=== PATIENT | female | born 1970 | race Caucasian/White ===

== ENCOUNTER 2020-04-06 13:18 | Outpatient (REF) | payer OTHER, SELFPAY ==
[2020-04-06 15:56] LABS: Alanine Aminotransferase 23 U/L (0-31); Albumin Level 4.1 g/dL (3.5-5.0); Alkaline Phosphatase 99 U/L (39-117); Aspartate Amino Transferase 16 U/L (5-31); Bilirubin Direct < 0.2 mg/dL (0.0-0.5); Bilirubin Total 0.4 mg/dL (0.0-1.0); Total Protein 7.1 g/dL (6.5-8.0)
[2020-04-06 16:00] LABS: Cholesterol 294 mg/dL; HDL Cholesterol 39 mg/dL; Triglycerides 429 mg/dL
== END 2020-04-06 13:19 | disposition home or self-care (01) ==
LOC: CF 13:18
PROVIDERS: PCP Internal Medicine; Referring Provider Internal Medicine; Visit Provider Internal Medicine
DX: I25.10 Atherosclerotic heart disease of native coronary artery without angina pectoris (principal); I10 Essential (primary) hypertension; Z95.5 Presence of coronary angioplasty implant and graft; E78.2 Mixed hyperlipidemia; E11.8 Type 2 diabetes mellitus with unspecified complications; Z78.9 Other specified health status
CPT/HCPCS: 80061; 80076; 99214

== ENCOUNTER → 2020-04-20 09:48 | Outpatient (BNVA) | payer OTHER, SELFPAY | PROVIDERS: PCP Internal Medicine; Referring Provider Internal Medicine; Visit Provider Internal Medicine Pulmonary Disease | DX: J45.40 Moderate persistent asthma, uncomplicated (principal); Z79.899 Other long term (current) drug therapy | CPT/HCPCS: 99214 ==

== ENCOUNTER 2020-05-13 09:00 | Day surgery (SDC) | payer OTHER, SELFPAY ==
--- NOTE | 2020-05-12 13:58 | P.CONAN_ITS ---
Documented by User: Elvia Damari 05/12/20 14:13 HPI - Anesthesia Eval Consult details Narrative: 49yo F for Colonoscopy PMFSH Past Medical History Medical History Arteriosclerotic cardiovascular disease Bipolar 1 disorder Depression Dyspnea on exertion Essential (primary) hypertension Mixed hyperlipidemia Moderate persistent asthma NSTEMI (non-ST elevated myocardial infarction) Statin intolerance Type 2 diabetes mellitus with unspecified complications Family History Family History Father Cancer of kidney Lung cancer Surgical History Surgical History H/O Spinal surgery H/O: hysterectomy History of appendectomy History of cardiac cath Previous section Stented coronary artery Social History Social History Smoking Status: Current every day smoker Packs Per Day: 0.5 Cigarettes Per Day: 10 Smoked in Last 30 Days: Yes Patient Interested in Nicotine Replacement: No Use of substances other than those prescribed or required for medical reasons: No Advance Directives: No Meds Allergies Allergy/AdvReac Type Severity Reaction Status Date / Time citalopram [From Celexa] Allergy Severe ANAPHYLAXIS Verified 04/20/20 10:09 Iodinated Contrast Media Allergy Severe ANAPHYLAXIS Verified 04/20/20 10:09 [IV Dye, Iodine Containing] morphine [Morphine] Allergy Severe THROAT Verified 04/20/20 10:09 CLOSED, anaphylaxis, anaphylaxis salmeterol Allergy Severe DIFFICULTY Verified 04/20/20 10:09 [From Serevent Diskus] BREATHING, shortness of breath, shortness of breath adhesive tape [Adhesive Tape] Allergy Intermediate RASH, Verified 04/20/20 10:09 PAPER TAPE IS OKAY TO USE codeine [Codeine] Allergy Mild ASTHMA, Verified 04/20/20 10:09 anaphylaxis hydrocortisone Allergy Mild RASH Verified 04/20/20 10:09 [Hydrocortisone] latex [Latex] Allergy Mild ITCHING Verified 04/20/20 10:09 Penicillins Allergy Mild HIVES Verified 04/20/20 10:09 trazodone [Trazodone] Allergy Mild HIVES Verified 04/20/20 10:09 adhesive bangade Allergy Unknown Unknown Verified 04/20/20 10:09 alirocumab [Praluent Pen] Allergy Unknown Severe Verified 04/20/20 10:09 muscle pain, cramping azithromycin [From ZITHROMAX] Allergy Unknown REACTION Verified 04/20/20 10:09 UNKNOWN Cefuroxime Axetil Allergy Unknown shortness Verified 04/20/20 10:09 of breath Clindamycin HCl Allergy Unknown vomiting Verified 04/20/20 10:09 contrast dye Allergy Unknown anaphylaxis Verified 04/20/20 10:09 escitalopram [Lexapro] Allergy Unknown Unknown Verified 04/20/20 10:09 ezetimibe [From ZETIA] Allergy Unknown REACTION Verified 04/20/20 10:09 UNKNOWN Hydrocortisone Allergy Unknown shortness Verified 04/20/20 10:09 of breath naproxen Allergy Unknown Unknown Verified 04/20/20 10:09 prednisone Allergy Unknown sob Verified 04/20/20 10:09 sitagliptin [From JANUVIA] Allergy Unknown UNKNOWN Verified 04/20/20 10:09 REACTION Sulfa (Sulfonamide Allergy Unknown sob Verified 04/20/20 10:09 Antibiotics) Toradol Allergy Unknown anaphylaxis Verified 04/20/20 10:09 tramadol [TRAMADOL] Allergy Unknown REACTION Verified 04/20/20 10:09 UNKNOWN, anaphylaxis, anaphylaxis trimethoprim [From BACTRIM] Allergy Unknown REACTION Verified 04/20/20 10:09 UNKNOWN quetiapine [From Seroquel] AdvReac Mild SEIZURE Verified 04/20/20 10:09 Home Medications Medication Instructions Recorded Confirmed Type amlodipine 5 mg tablet 2.5 mg PO DAILY 04/06/20 History aspirin 81 mg tablet,delayed 81 mg PO DAILY 04/06/20 04/06/20 History release carvedilol 3.125 mg tablet 3.125 mg PO BID 04/06/20 History ciclesonide 160 mcg/actuation 1 puff PO BID 04/06/20 History aerosol inhaler diazepam 2 mg tablet 2 mg PO DAILY PRN 04/06/20 History glyburide 2.5 mg tablet 2.5 mg PO QAM 04/06/20 History levetiracetam 500 mg tablet 500 mg PO TID 04/06/20 History lisinopril 2.5 mg tablet 2.5 mg PO DAILY 04/06/20 History metformin 1,000 mg tablet 1,000 mg PO BID 04/06/20 History pantoprazole 40 mg tablet,delayed 40 mg PO DAILY 04/06/20 History release topiramate 200 mg tablet 500 mg PO DAILY 04/06/20 History Exam Exam Date and Time: May 12, 2020 1358 Pertinent Lab Results Pertinent Lab Results: Laboratory Tests 06/23/19 12/30/19 11:30 14:36 WBC 12.9 H Hgb 16.1 H Hct 46.7 Plt Count 350 Sodium 140 Potassium 4.5 D Chloride 106 BUN 11 Creatinine 0.72 Narrative Narrative: EKG 04/06/20: NSR @ 85, Nonspec ST and T wave abn Echo 06/2019: Essentially nml study with trace AR Documented by User: Raimundo Shields MD 05/13/20 10:05 [facility] Past Medical History Medical History Arteriosclerotic cardiovascular disease Bipolar 1 disorder Depression Dyspnea on exertion Essential (primary) hypertension Mixed hyperlipidemia Moderate persistent asthma NSTEMI (non-ST elevated myocardial infarction) Statin intolerance Type 2 diabetes mellitus with unspecified complications Family History Family History Father Cancer of kidney Lung cancer Surgical History Surgical History H/O Spinal surgery H/O: hysterectomy History of appendectomy History of cardiac cath Previous section Stented coronary artery Social History Social History Smoking Status: Current every day smoker Packs Per Day: 0.5 Cigarettes Per Day: 10 Smoked in Last 30 Days: Yes Patient Interested in Nicotine Replacement: No Use of substances other than those prescribed or required for medical reasons: No Advance Directives: No Meds Allergies Allergy/AdvReac Type Severity Reaction Status Date / Time citalopram [From Celexa] Allergy Severe ANAPHYLAXIS Verified 04/20/20 10:09 Iodinated Contrast Media Allergy Severe ANAPHYLAXIS Verified 04/20/20 10:09 [IV Dye, Iodine Containing] morphine [Morphine] Allergy Severe THROAT Verified 04/20/20 10:09 CLOSED, anaphylaxis, anaphylaxis salmeterol Allergy Severe DIFFICULTY Verified 04/20/20 10:09 [From Serevent Diskus] BREATHING, shortness of breath, shortness of breath adhesive tape [Adhesive Tape] Allergy Intermediate RASH, Verified 04/20/20 10:09 PAPER TAPE IS OKAY TO USE codeine [Codeine] Allergy Mild ASTHMA, Verified 04/20/20 10:09 anaphylaxis hydrocortisone Allergy Mild RASH Verified 04/20/20 10:09 [Hydrocortisone] latex [Latex] Allergy Mild ITCHING Verified 04/20/20 10:09 Penicillins Allergy Mild HIVES Verified 04/20/20 10:09 trazodone [Trazodone] Allergy Mild HIVES Verified 04/20/20 10:09 adhesive bangade Allergy Unknown Unknown Verified 04/20/20 10:09 alirocumab [Praluent Pen] Allergy Unknown Severe Verified 04/20/20 10:09 muscle pain, cramping azithromycin [From ZITHROMAX] Allergy Unknown REACTION Verified 04/20/20 10:09 UNKNOWN Cefuroxime Axetil Allergy Unknown shortness Verified 04/20/20 10:09 of breath Clindamycin HCl Allergy Unknown vomiting Verified 04/20/20 10:09 contrast dye Allergy Unknown anaphylaxis Verified 04/20/20 10:09 escitalopram [Lexapro] Allergy Unknown Unknown Verified 04/20/20 10:09 ezetimibe [From ZETIA] Allergy Unknown REACTION Verified 04/20/20 10:09 UNKNOWN Hydrocortisone Allergy Unknown shortness Verified 04/20/20 10:09 of breath naproxen Allergy Unknown Unknown Verified 04/20/20 10:09 prednisone Allergy Unknown sob Verified 04/20/20 10:09 sitagliptin [From JANUVIA] Allergy Unknown UNKNOWN Verified 04/20/20 10:09 REACTION Sulfa (Sulfonamide Allergy Unknown sob Verified 04/20/20 10:09 Antibiotics) Toradol Allergy Unknown anaphylaxis Verified 04/20/20 10:09 tramadol [TRAMADOL] Allergy Unknown REACTION Verified 04/20/20 10:09 UNKNOWN, anaphylaxis, anaphylaxis trimethoprim [From BACTRIM] Allergy Unknown REACTION Verified 04/20/20 10:09 UNKNOWN quetiapine [From Seroquel] AdvReac Mild SEIZURE Verified 04/20/20 10:09 Home Medications Medication Instructions Recorded Confirmed Type amlodipine 5 mg tablet 2.5 mg PO DAILY 04/06/20 History aspirin 81 mg tablet,delayed 81 mg PO DAILY 04/06/20 04/06/20 History release carvedilol 3.125 mg tablet 3.125 mg PO BID 04/06/20 History ciclesonide 160 mcg/actuation 1 puff PO BID 04/06/20 History aerosol inhaler diazepam 2 mg tablet 2 mg PO DAILY PRN 04/06/20 History glyburide 2.5 mg tablet 2.5 mg PO QAM 04/06/20 History levetiracetam 500 mg tablet 500 mg PO TID 04/06/20 History lisinopril 2.5 mg tablet 2.5 mg PO DAILY 04/06/20 History metformin 1,000 mg tablet 1,000 mg PO BID 04/06/20 History pantoprazole 40 mg tablet,delayed 40 mg PO DAILY 04/06/20 History release topiramate 200 mg tablet 500 mg PO DAILY 04/06/20 History Exam Airway Mallampati Class: I TM Dist: >3cm Neck ROM: Full Denture: Upper and Lower Heart: rrr Assessment and Plan Assessment Anesthesia Assessment: Anesthesia Plan Discussed and Chart Reviewed Final Anesthetic Review NPO: Yes ASA Class: III Final Preanesthetic Review: No Changes in Pt Med Stat, Meds/Allgs Chart Reviewed, Consent Obtained/Reviewed and Anes Risks/Benef Reviewed Patient Risk: Intermediate Procedure Risk: Low Anesthetic Plan Anesthetic Plan: MAC: Disposition: Standard PACU
[2020-05-13 09:51] VITALS: BMI 22.6
[2020-05-13 09:56] VITALS: BP 120/86; PULSE 82; RESP 18; TEMP 36.3; O2SAT 98
[2020-05-13 10:09] LABS: Glucose, Whole Blood 188 mg/dL (60-115)
--- NOTE | 2020-05-13 10:11 | MHC.SHP ---
Pre-Procedural Eval Section B Chief Complaint: constipation Details of Present Illness: hx of polyps and poor prep Relevant Social History: Tobacco Use Present Medications: see Short Stay Collaborative assessment Medical History: Significant History (dm, CAD, HLP, HTN) History of Previous Operations: Relevant previous surgery/procedure and date(s) (appendectomy, hysterectomy, c sections) Allergies: Allergies Allergy/AdvReac Type Severity Reaction Status Date / Time citalopram [From Celexa] Allergy Severe ANAPHYLAXIS Verified 04/20/20 10:09 Iodinated Contrast Media Allergy Severe ANAPHYLAXIS Verified 04/20/20 10:09 [IV Dye, Iodine Containing] morphine [Morphine] Allergy Severe THROAT Verified 04/20/20 10:09 CLOSED, anaphylaxis, anaphylaxis salmeterol Allergy Severe DIFFICULTY Verified 04/20/20 10:09 [From Serevent Diskus] BREATHING, shortness of breath, shortness of breath adhesive tape [Adhesive Tape] Allergy Intermediate RASH, Verified 04/20/20 10:09 PAPER TAPE IS OKAY TO USE codeine [Codeine] Allergy Mild ASTHMA, Verified 04/20/20 10:09 anaphylaxis hydrocortisone Allergy Mild RASH Verified 04/20/20 10:09 [Hydrocortisone] latex [Latex] Allergy Mild ITCHING Verified 04/20/20 10:09 Penicillins Allergy Mild HIVES Verified 04/20/20 10:09 trazodone [Trazodone] Allergy Mild HIVES Verified 04/20/20 10:09 adhesive bangade Allergy Unknown Unknown Verified 04/20/20 10:09 alirocumab [Praluent Pen] Allergy Unknown Severe Verified 04/20/20 10:09 muscle pain, cramping azithromycin [From ZITHROMAX] Allergy Unknown REACTION Verified 04/20/20 10:09 UNKNOWN Cefuroxime Axetil Allergy Unknown shortness Verified 04/20/20 10:09 of breath Clindamycin HCl Allergy Unknown vomiting Verified 04/20/20 10:09 contrast dye Allergy Unknown anaphylaxis Verified 04/20/20 10:09 escitalopram [Lexapro] Allergy Unknown Unknown Verified 04/20/20 10:09 ezetimibe [From ZETIA] Allergy Unknown REACTION Verified 04/20/20 10:09 UNKNOWN Hydrocortisone Allergy Unknown shortness Verified 04/20/20 10:09 of breath naproxen Allergy Unknown Unknown Verified 04/20/20 10:09 prednisone Allergy Unknown sob Verified 04/20/20 10:09 sitagliptin [From JANUVIA] Allergy Unknown UNKNOWN Verified 04/20/20 10:09 REACTION Sulfa (Sulfonamide Allergy Unknown sob Verified 04/20/20 10:09 Antibiotics) Toradol Allergy Unknown anaphylaxis Verified 04/20/20 10:09 tramadol [TRAMADOL] Allergy Unknown REACTION Verified 04/20/20 10:09 UNKNOWN, anaphylaxis, anaphylaxis trimethoprim [From BACTRIM] Allergy Unknown REACTION Verified 04/20/20 10:09 UNKNOWN quetiapine [From Seroquel] AdvReac Mild SEIZURE Verified 04/20/20 10:09 Review of Systems Sugical H&P ROS: Negative: Constitution, Cardiovascular, Respiratory, Neurological, Psychiatric, Hem-Onc, Allergic/Immunologic, Gastrointestinal, Genitourinary, Musculoskeletal, Integumentary, Endocrine and Eyes/Ears/Nose/Throat Exam Surgical H&P Exam: Normal: HEENT, Normal: Heart, Normal: Lungs, Normal: Extremities, Normal: Abdomen, Normal: Skin and Normal: Neurological Plan Diagnosis/Plan: Unchanged Patient has been examined and remains a candidate for the planned procedure
--- NOTE | 2020-05-13 10:13 | PM.OP ---
Brief Operative Note Date of Service: 05/13/20 Pre-op diagnosis: hx of colon polyps Post-op diagnosis: same Procedure: see op note Surgeon: Allan Hernandez MD Anesthesia: MAC Estimated blood loss (mL): 0 Condition: stable Disposition: PACU
[2020-05-13] MEDS: Lactated Ringers 1,000 ML 100 ML IVCONT (10:14)
--- NOTE | 2020-05-13 10:58 | W.PM.OPN ---
Operative Note Operative Note Date of Service: 05/13/20 Narrative: Operative Information Procedure Description: Colonoscopy COLONOSCOPY Instrument: Olympus variable stiffness pediatric scope 190L Colonoscopy Monitoring: Vital signs and clinical assessment, continuous EKG monitoring, Pulse oximetry, Carbon Dioxide monitoring and blood pressure monitoring were done throughout the procedure. Colon withdrawal time was 12 minutes. Procedure: The patient was placed in the left lateral decubitis position and pre-procedure medications were administered. After a digital rectal examination of the ano-rectum, the video colonoscope was inserted into the rectum and advanced through the colon to the cecum/TI. The colonoscope was slowly withdrawn in a retrograde panoramic fashion and the colon mucosa was carefully examined including a retroflexed view of the rectum. Findings and interventions are described below. Procedure Difficulty:easy Findings: Terminal Ileum-normal Cecum:normal Ascending Colon: normal Transverse Colon -normal Descending Colon:normal Sigmoid Colon: several polyps noted, appeared hyperplastic , larger ones measuring about 10 mm biopsy excised Rectum: Retroflexion with small internal hemorrhoids, grade I, 8 mm sessile polyp removed with biopsy forceps Anorectum - normal Colon preparation: [place] Bowel Preparation Scale Right colon; 3 Transverse colon: 3 Left colon; 3 (0 = Unprepared colon segment with mucosa not seen due to solid stool that cannot be cleared. 1 = Portion of mucosa of the colon segment seen, but other areas of the colon segment not well seen due to staining, residual stool and/or opaque liquid. 2 = Minor amount of residual staining, small fragments of stool and/or opaque liquid, but mucosa of colon segment seen well. 3 = Entire mucosa of colon segment seen well with no residual staining, small fragments of stool or opaque liquid) Impression and Post Procedure Diagnosis: polyps internal hemorrhoids Plan: High fiber diet leaflet Avoid straining at stool, epsom salts and sitz bath prn, anusol supps or cream prn Repeat Colonoscopy in 3-5 years pending path or earlier if clinically indicated Above findings were reviewed with the patient and relevant handouts were provided if indicated.
[2020-05-13 11:05] VITALS: BP 108/70; PULSE 82; RESP 14; TEMP 36.4; O2SAT 98
[2020-05-13 11:20] VITALS: BP 94/62; PULSE 78; RESP 14; O2SAT 96
[2020-05-13 11:33] VITALS: BP 104/66; PULSE 82; RESP 16; TEMP 36.4; O2SAT 97
--- NOTE | 2020-05-13 11:44 | HO.POSTANES ---
Post Anesthesia Evaluation Post Anesthesia Evaluation Vital Signs: Vital Signs Temp Pulse Resp BP Pulse Ox 05/13/20 11:33 97.6 F 82 16 104/66 97 05/13/20 11:20 78 14 94/62 96 05/13/20 11:05 97.6 F 82 14 108/70 98 05/13/20 09:56 97.3 F 82 18 120/86 98 Anesthesia: Monitored Mental Status: Awake Pain Control: Satisfactory Nausea/Vomiting: None Hydration: Adequate Anesthesia-Related Issues: No Anes. Related Issues
== END 2020-05-13 11:55 | disposition home or self-care (01) ==
PROVIDERS: PCP Internal Medicine; Visit Provider Internal Medicine Gastroenterology
PROC: 0DJD8ZZ Inspection of Lower Intestinal Tract, Via Natural or Artificial Opening Endoscopic (ICD-10-PCS; CPT 45378; principal; 2020-05-13 10:10)
DX: K59.00 Constipation, unspecified (principal); Z86.010 Personal history of colon polyps; K63.5 Polyp of colon; K62.1 Rectal polyp; K64.0 First degree hemorrhoids; I10 Essential (primary) hypertension; E78.2 Mixed hyperlipidemia; E11.8 Type 2 diabetes mellitus with unspecified complications; I25.10 Atherosclerotic heart disease of native coronary artery without angina pectoris; Z95.5 Presence of coronary angioplasty implant and graft; J45.40 Moderate persistent asthma, uncomplicated; F31.9 Bipolar disorder, unspecified; Z79.82 Long term (current) use of aspirin; Z79.84 Long term (current) use of oral hypoglycemic drugs; Z79.899 Other long term (current) drug therapy; F17.210 Nicotine dependence, cigarettes, uncomplicated; Z88.0 Allergy status to penicillin; Z88.2 Allergy status to sulfonamides; Z88.8 Allergy status to other drugs, medicaments and biological substances; Z91.040 Latex allergy status
CPT/HCPCS: 45380; 82947; 88305; J2250

== ENCOUNTER → 2020-05-21 09:54 | Outpatient (BNVA) | payer OTHER, SELFPAY | PROVIDERS: PCP Internal Medicine; Referring Provider Internal Medicine; Visit Provider Internal Medicine Gastroenterology | DX: Z76.89 Persons encountering health services in other specified circumstances (principal) ==

== ENCOUNTER 2020-07-09 11:39 | Outpatient (REF) | payer OTHER, SELFPAY ==
--- NOTE | 2020-07-09 12:11 | XR_ITS ---
EXAMINATION: XR SINUSES CLINICAL INFORMATION: Chronic sinusitis COMPARISON: Previous head CT June 2019 TECHNIQUE: 5 views of the sinuses were obtained. FINDINGS: The paranasal sinuses are clear. No evidence of opacification or air-fluid level to suggest sinusitis is seen. Bony structures are unremarkable. XR/XR sinus min 3V IMPRESSION: Clear paranasal sinuses.
--- NOTE | 2020-07-09 12:11 | XR_ITS ---
EXAMINATION: CERVICAL AND LUMBAR SPINE X-RAY CLINICAL INFORMATION: Neck and back pain COMPARISON: Previous lumbar spine MRI x-ray from 2006 TECHNIQUE: 5 views of the cervical spine and 3 views of the lumbar spine FINDINGS: Cervical spine: Bone alignment is normal. No fracture or dislocation is seen. There is mild degenerative spondylosis at C3-C4. Disc spaces are normal. There is right-sided neural foraminal narrowing from bony osteophyte at C3-C4. Left-sided neural foramen are patent. Prevertebral soft tissues are normal. Lumbar spine: There are postsurgical changes following left 5 laminectomy There may be very minimal 2 mm retrolisthesis of 5 with respect to L4 and S1. Bone alignment is normal. No fracture or dislocation is seen. There is degenerative disc disease at L5-S1. There is lower lumbar spine facet arthritis. XR/XR cervical spine 3V IMPRESSION: Cervical spine: Mild degenerative spondylosis and right-sided neuroforaminal narrowing at C3-C4. Lumbar spine: Postsurgical change following L5 laminectomy L5-S1 degenerative disc disease and lower lumbar spine facet arthritis.
--- NOTE | 2020-07-09 12:11 | XR_ITS ---
EXAMINATION: CERVICAL AND LUMBAR SPINE X-RAY CLINICAL INFORMATION: Neck and back pain COMPARISON: Previous lumbar spine MRI x-ray from 2006 TECHNIQUE: 5 views of the cervical spine and 3 views of the lumbar spine FINDINGS: Cervical spine: Bone alignment is normal. No fracture or dislocation is seen. There is mild degenerative spondylosis at C3-C4. Disc spaces are normal. There is right-sided neural foraminal narrowing from bony osteophyte at C3-C4. Left-sided neural foramen are patent. Prevertebral soft tissues are normal. Lumbar spine: There are postsurgical changes following left 5 laminectomy There may be very minimal 2 mm retrolisthesis of 5 with respect to L4 and S1. Bone alignment is normal. No fracture or dislocation is seen. There is degenerative disc disease at L5-S1. There is lower lumbar spine facet arthritis. XR/XR lumbar spine 2-3V IMPRESSION: Cervical spine: Mild degenerative spondylosis and right-sided neuroforaminal narrowing at C3-C4. Lumbar spine: Postsurgical change following L5 laminectomy L5-S1 degenerative disc disease and lower lumbar spine facet arthritis.
[2020-07-09 13:02] LABS: Alanine Aminotransferase 30 U/L (0-31); Alkaline Phosphatase 95 U/L (39-117); Anion Gap 14 (12-20); Aspartate Amino Transferase 18 U/L (5-31); Bilirubin Total 0.2 mg/dL (0.0-1.0); Blood Urea Nitrogen 6 mg/dL (9-16); Calcium 9.5 mg/dL (8.4-10.2); Carbon Dioxide 21 mmol/L (22-29); Chloride 110 mmol/L (96-108); Cholesterol 297 mg/dL; Estimated Glomerular Filt Rate > 60; Glucose Fasting 203 mg/dL (60-99); HDL Cholesterol 41 mg/dL; Potassium 4.1 mmol/l (3.3-5.1); Sodium 141 mmol/L (135-145); Total Protein 6.9 g/dL (6.5-8.0); Triglycerides 633 mg/dL
== END 2020-07-09 11:40 | disposition home or self-care (01) ==
LOC: HO.LAB 11:39
PROVIDERS: Visit Provider Internal Medicine
DX: M54.5 Low back pain (principal); M54.2 Cervicalgia; E11.8 Type 2 diabetes mellitus with unspecified complications; J32.9 Chronic sinusitis, unspecified; M51.36 Other intervertebral disc degeneration, lumbar region; E78.5 Hyperlipidemia, unspecified; E78.2 Mixed hyperlipidemia
CPT/HCPCS: 36415; 70220; 72040; 72100; 80053; 80061

== ENCOUNTER 2020-07-09 13:03 | Outpatient (REF) | payer OTHER, SELFPAY ==
[2020-07-09 14:43] LABS: Thyroid Stimulating Hormone 0.93 uIU/mL (0.32-4.0)
[2020-07-11 01:28] LABS: LDL Cholesterol Direct 196 mg/dL (<100)
== END 2020-07-09 13:04 | disposition home or self-care (01) ==
LOC: HO.10HDL 13:03
PROVIDERS: Absent Provider Internal Medicine Endocrinology, Diabetes & Metabolism; Visit Provider Internal Medicine
DX: E78.2 Mixed hyperlipidemia (principal)
CPT/HCPCS: 36415; 83721; 84439; 84443

== ENCOUNTER → 2020-07-19 09:46 | Outpatient (BNVA) | payer OTHER, SELFPAY | PROVIDERS: PCP Internal Medicine; Referring Provider Internal Medicine; Visit Provider Internal Medicine Endocrinology, Diabetes & Metabolism ==

== ENCOUNTER → 2020-07-23 10:43 | Outpatient (BNVA) | payer OTHER, SELFPAY | PROVIDERS: Visit Provider Internal Medicine Gastroenterology ==

== ENCOUNTER → 2020-10-12 12:33 | Outpatient (BNVA) | payer OTHER, SELFPAY | PROVIDERS: PCP Internal Medicine; Visit Provider Internal Medicine | DX: I25.10 Atherosclerotic heart disease of native coronary artery without angina pectoris (principal); I10 Essential (primary) hypertension; E78.2 Mixed hyperlipidemia; E11.8 Type 2 diabetes mellitus with unspecified complications; Z95.5 Presence of coronary angioplasty implant and graft; Z78.9 Other specified health status | CPT/HCPCS: 93005; 99212 ==

== ENCOUNTER 2021-02-09 16:29 | Outpatient (REF) | payer OTHER, SELFPAY ==
[2021-02-09 17:32] LABS: Alanine Aminotransferase 15 U/L (0-31); Albumin Level 4.1 g/dL (3.5-5.0); Alkaline Phosphatase 91 U/L (39-117); Anion Gap 15 (12-20); Aspartate Amino Transferase 11 U/L (5-31); Bilirubin Total 0.3 mg/dL (0.0-1.0); Blood Urea Nitrogen 13 mg/dL (9-16); Carbon Dioxide 20 mmol/L (22-29); Chloride 108 mmol/L (96-108); Cholesterol 317 mg/dL; Estimated Glomerular Filt Rate > 60; Glucose Fasting 160 mg/dL (60-99); HDL Cholesterol 41 mg/dL; LDL Cholesterol Calculated 200 mg/dl; Potassium 4.2 mmol/L (3.3-5.1); Sodium 139 mmol/L (135-145); Triglycerides 384 mg/dL
[2021-02-09 17:44] LABS: Creatinine Urine 48.11 mg/dL; Microalbumin Urine < 5.0 mg/L
[2021-02-19 13:32] LABS: Vitamin D 25-OH, D2 <4 ng/mL; Vitamin D 25-OH, D3 21 ng/mL; Vitamin D 25-OH, Total 21 ng/mL (30-100)
== END 2021-02-09 16:30 | disposition home or self-care (01) ==
LOC: HO.LAB 16:29
PROVIDERS: PCP Internal Medicine; Visit Provider Internal Medicine
DX: I10 Essential (primary) hypertension (principal); E78.5 Hyperlipidemia, unspecified; E11.9 Type 2 diabetes mellitus without complications; Z78.9 Other specified health status; E55.9 Vitamin D deficiency, unspecified
CPT/HCPCS: 36415; 80053; 80061; 82043; 82306

== ENCOUNTER 2021-03-20 19:22 | Emergency (ER) | payer OTHER, SELFPAY ==
--- NOTE | ~2021-03-20 | XR_ITS ---
EXAMINATION: XR HIP, LEFT CLINICAL INFORMATION: Atraumatic pain. COMPARISON: None TECHNIQUE: Two views of the left hip. Single AP view pelvis. FINDINGS: Bones and soft tissues are normal. No fracture. Alignment is anatomic. Hip joint space is maintained. XR/XR hip LT w PEL1V IMPRESSION: Unremarkable left hip exam.
[2021-03-20 19:35] VITALS: BP 149/88; PULSE 91; RESP 16; TEMP 36.6; O2SAT 96; BMI 23.3
--- NOTE | 2021-03-20 22:31 | ED_ITS ---
HPI - Extremity Injury (Lower) General Chief Complaint: Extremity Injury, Lower Stated Complaint: Hip/Back pain Time Seen by Provider: 03/20/21 21:32 Source: patient Mode of arrival: ambulatory Limitations: no limitations History of Present Illness HPI Narrative: Patient with history of severe arthritis complaining of pain in left hip for last 2 weeks no known trauma also complaining of knee pain in the back pain which is also chronic. Related Data Home Medications Medication Instructions Recorded Confirmed aspirin 81 mg tablet,delayed 81 mg PO DAILY 04/06/20 01/06/21 release levetiracetam 500 mg tablet See Rx Instructions .ROUTE .COMPLEX 07/23/20 01/06/21 (Keppra) linaclotide 72 mcg capsule 72 mcg PO .Q3days cap 10/12/20 01/06/21 Previous Rx's Medication Instructions Recorded fluticasone propionate 110 2 puff INHALATION BID 30 Days #1 ea 04/20/20 mcg/actuation HFA aerosol inhaler (Flovent HFA) ipratropium 0.5 mg-albuterol 3 mg 3 ml INHALATION QID PRN 30 Days 04/20/20 (2.5 mg base)/3 mL nebulization #180 ml soln lisinopril 2.5 mg tablet 2.5 mg PO DAILY 90 Days #90 tab 05/18/20 mirtazapine 30 mg tablet 30 mg PO BEDTIME 90 Days #90 tab 07/06/20 carvedilol 3.125 mg tablet 3.125 mg PO BID 90 Days #180 tab 08/30/20 nitroglycerin 0.4 mg sublingual 0.4 mg SUBLINGUAL Q5M PRN #30 tab 10/12/20 tablet topiramate 200 mg tablet 500 mg PO DAILY #30 tab 11/10/20 pantoprazole 40 mg tablet,delayed 40 mg PO DAILY #30 tab 11/12/20 release amlodipine 2.5 mg tablet 2.5 mg PO DAILY #90 tab 01/01/21 blood sugar diagnostic (FreeStyle #50 ea 02/08/21 Lite Strips) blood-glucose meter (FreeStyle #1 ea 02/08/21 Lite Meter) lancets 28 gauge (FreeStyle #100 ea 02/08/21 Lancets) pravastatin 80 mg tablet 80 mg PO DAILY 90 Days #90 tab 02/10/21 metformin 850 mg tablet 850 mg PO BID 90 Days #180 tab 02/28/21 diazepam 2 mg tablet 2 mg PO DAILY PRN 30 Days #30 tab 03/10/21 doxycycline hyclate 50 mg capsule 50 mg PO BID 5 Days #10 cap 03/14/21 carisoprodol 350 mg tablet (Soma) 350 mg PO QID PRN #30 tab 03/20/21 prednisone 20 mg tablet 40 mg PO DAILY #10 tab 03/20/21 Allergies Allergy/AdvReac Type Severity Reaction Status Date / Time citalopram [From Celexa] Allergy Severe ANAPHYLAXIS Verified 01/06/21 17:01 Iodinated Contrast Media Allergy Severe ANAPHYLAXIS Verified 01/06/21 17:01 [IV Dye, Iodine Containing] morphine [Morphine] Allergy Severe THROAT Verified 01/06/21 17:01 CLOSED, anaphylaxis, anaphylaxis salmeterol Allergy Severe DIFFICULTY Verified 01/06/21 17:01 [From Serevent Diskus] BREATHING, shortness of breath, shortness of breath adhesive tape [Adhesive Tape] Allergy Intermediate RASH, Verified 01/06/21 17:01 PAPER TAPE IS OKAY TO USE azithromycin [From ZITHROMAX] Allergy Intermediate throat Verified 01/06/21 17:01 swelling ezetimibe [From ZETIA] Allergy Intermediate muscle Verified 01/06/21 17:01 cramps propofol Allergy Intermediate seizure Verified 01/06/21 17:01 sitagliptin [From JANUVIA] Allergy Intermediate swollen Verified 01/06/21 17:01 trimethoprim [From BACTRIM] Allergy Intermediate sob Verified 01/06/21 17:01 codeine [Codeine] Allergy Mild ASTHMA, Verified 01/06/21 17:01 anaphylaxis hydrocortisone Allergy Mild RASH Verified 01/06/21 17:01 [Hydrocortisone] latex [Latex] Allergy Mild ITCHING Verified 01/06/21 17:01 Penicillins Allergy Mild HIVES Verified 01/06/21 17:01 trazodone [Trazodone] Allergy Mild HIVES Verified 01/06/21 17:01 adhesive bangade Allergy Unknown Unknown Verified 01/06/21 17:01 alirocumab [Praluent Pen] Allergy Unknown Severe Verified 01/06/21 17:01 muscle pain, cramping Cefuroxime Axetil Allergy Unknown shortness Verified 01/06/21 17:01 of breath Clindamycin HCl Allergy Unknown vomiting Verified 01/06/21 17:01 contrast dye Allergy Unknown anaphylaxis Verified 01/06/21 17:01 escitalopram [Lexapro] Allergy Unknown Unknown Verified 01/06/21 17:01 Hydrocortisone Allergy Unknown shortness Verified 01/06/21 17:01 of breath prednisone Allergy Unknown sob Verified 01/06/21 17:01 Sulfa (Sulfonamide Allergy Unknown sob Verified 01/06/21 17:01 Antibiotics) Toradol Allergy Unknown anaphylaxis Verified 01/06/21 17:01 tramadol [TRAMADOL] Allergy Unknown REACTION Verified 01/06/21 17:01 UNKNOWN, anaphylaxis, anaphylaxis naproxen AdvReac Severe gerd Verified 01/06/21 17:01 evolocumab AdvReac Intermediate hyperglycemia, Verified 01/06/21 17:01 [From Repatha SureClick] uncontrolled hypertension quetiapine [From Seroquel] AdvReac Mild SEIZURE Verified 01/06/21 17:01 Review of Systems Review of Systems: Yes all other systems are reviewed and are negative PMFSH Past Medical History Medical History Arteriosclerotic cardiovascular disease Bipolar 1 disorder Cervical radiculopathy Depression Dyspnea on exertion Essential (primary) hypertension Lumbar degenerative disc disease Mixed hyperlipidemia Moderate persistent asthma Neck pain NSTEMI (non-ST elevated myocardial infarction) Seizures Sinusitis Statin intolerance Thyroid nodule Type 2 diabetes mellitus with unspecified complications Surgical History H/O Spinal surgery H/O: hysterectomy History of appendectomy History of cardiac cath History of colonoscopy Hx of carpal tunnel repair Hx of endoscopy Hx of toe surgery Previous section Stented coronary artery Family History Family History Father Cancer of kidney Lung cancer Mother No problems noted. Social History Social History Household Members: Children Housing: Apartment Alcohol intake: never Patient Tobacco Use Status: Current everyday Tobacco user Tobacco use type: Cigarette Cigarette Packs Per Day: 0.5 e-Cigarette/Vaping Use: Never Used Second Hand Smoke Exposure: Yes Substance Use Type: Marijuana Advance Directives: No service: No Current occupational status: disabled Physical Exam Vital Signs: Vital Signs: Last Vital Signs Temp 98 F 03/20/21 19:35 Pulse 91 03/20/21 19:35 Resp 16 03/20/21 19:35 BP 149/88 H 03/20/21 19:35 Pulse Ox 96 03/20/21 19:35 Body Mass Index 23.3 Appearance: Alert. Oriented X3. No acute distress. ENT: Pharynx normal. Oral Mucosa moist Neck: Normal inspection. Neck supple. CVS: Normal heart rate and rhythm. Pulses normal. Respiratory: No respiratory distress. Equal air entry bilateral, no wheezing/rales/rhonchi Abdomen: Soft and nontender. Bowel sounds are present, Skin: Skin warm and dry. Normal skin color. Normal skin turgor. Extremities: No lower extremity edema. No calf tenderness left hip refused pain in the groin area no deformity neurovascular intact Neuro: Oriented X 3. MDM - Extremity Injury (Lower) MDM Narrative Medical decision making narrative: Patient with left hip pain likely muscular x- ray negative for fracture discharged home on Soma and prednisone as she is allergic to other medications Discharge Plan Discharge Clinical Impression: Arthritis pain, hip Patient Disposition: Home, Self-Care Instructions: Osteoarthritis (ED) Additional Instructions: Take pain medication and prednisone as prescribed and follow with PCP Prescriptions: New prednisone 20 mg tablet 40 mg PO DAILY Qty: 10 RF: 0 carisoprodol [Soma] 350 mg tablet 350 mg PO QID PRN (Reason: muscle pain) Qty: 30 RF: 0 No Action lisinopril 2.5 mg tablet 2.5 mg PO DAILY 90 Days Qty: 90 RF: 3 mirtazapine 30 mg tablet 30 mg PO BEDTIME 90 Days Qty: 90 RF: 1 carvedilol 3.125 mg tablet 3.125 mg PO BID 90 Days Qty: 180 RF: 3 topiramate 200 mg tablet 500 mg PO DAILY Qty: 30 RF: 0 pantoprazole 40 mg tablet,delayed release (DR/EC) 40 mg PO DAILY Qty: 30 RF: 4 amlodipine 2.5 mg tablet 2.5 mg PO DAILY Qty: 90 RF: 1 (DME) blood-glucose meter [FreeStyle Lite Meter] Kit See Rx Instructions .Route Qty: 1 RF: 0 (DME) FreeStyle Lite Strips Strip See Rx Instructions .Route Qty: 50 RF: 11 (DME) lancets [FreeStyle Lancets] 28 gauge misc See Rx Instructions .Route Qty: 100 RF: 11 pravastatin 80 mg tablet 80 mg PO DAILY 90 Days Qty: 90 RF: 3 metformin 850 mg tablet 850 mg PO BID 90 Days Qty: 180 RF: 2 diazepam 2 mg tablet 2 mg PO DAILY PRN (Reason: muscle spasm) 30 Days Qty: 30 RF: 0 doxycycline hyclate 50 mg capsule 50 mg PO BID 5 Days Qty: 10 RF: 0 aspirin 81 mg tablet,delayed release (DR/EC) 81 mg PO DAILY RF: 0 levetiracetam [Keppra] 500 mg tablet See Rx Instructions .ROUTE .COMPLEX RF: 0 Flovent HFA 110 mcg/actuation HFA aerosol inhaler 2 puff inhalation BID 30 Days Qty: 1 RF: 6 ipratropium-albuterol 0.5 mg-3 mg(2.5 mg base)/3 mL solution for nebulization 3 ml inhalation QID PRN (Reason: wheezing) 30 Days Qty: 180 RF: 6 linaclotide 72 mcg capsule 72 mcg PO .Q3days RF: 0 nitroglycerin 0.4 mg tablet, sublingual 0.4 mg sublingual Q5M PRN (Reason: chest pain) Qty: 30 RF: 5
[2021-03-20] MEDS: carisoprodoL 350 MG TABLET PO (22:45)
--- NOTE | 2021-03-20 22:46 | PC.NURSE ---
PT STATES CAN NOT TAKE ORAL PREDNISONE. ONLY IV.
== END 2021-03-20 22:58 | disposition home or self-care (01) ==
PROVIDERS: Emergency Provider Internal Medicine; PCP Internal Medicine
DX: M16.12 Unilateral primary osteoarthritis, left hip (principal); M25.552 Pain in left hip; F17.210 Nicotine dependence, cigarettes, uncomplicated; Z71.6 Tobacco abuse counseling; Z79.899 Other long term (current) drug therapy
CPT/HCPCS: 73502; 99283; 99284

== ENCOUNTER 2021-07-20 15:56 | Emergency (ER) | payer OTHER, SELFPAY ==
[2021-07-20 18:08] VITALS: BP 137/90; PULSE 91; RESP 18; TEMP 35.7; O2SAT 98; BMI 22.6
[2021-07-20 21:10] LABS: Hematocrit 43.7 % (37.0-47.0); Hemoglobin 14.9 g/dl (12.0-16.0); Mean Corpuscular HGB Conc 34.1 g/dl (31.0-35.0); Mean Corpuscular Hemoglobin 30.1 pg (27.0-33.0); Mean Corpuscular Volume 88.3 fL (80.0-98.0); Mean Platelet Volume 8.9 fL (9.4-12.3); Platelet Count 390 X10*3/uL (160-400); Red Blood Count 4.95 X10*6/uL (4.20-5.50); Red Cell Distribution Width 13.3 % (11.0-16.0); White Blood Count 12.9 X10*3/uL (4.8-10.8)
[2021-07-20 21:22] LABS: Anion Gap 13 (12-20); Blood Urea Nitrogen 11 mg/dL (9-16); Calcium 9.8 mg/dL (8.4-10.2); Carbon Dioxide 21 mmol/L (22-29); Chloride 110 mmol/L (96-108); Creatinine Clr Calc Pharmacy 113.7; Estimated Glomerular Filt Rate > 60; Glucose Random 124 mg/dL (60-115); Potassium 3.9 mmol/L (3.3-5.1); Sodium 140 mmol/L (135-145)
[2021-07-20 21:36] LABS: Atypical Lymph Absolute Manual 1.3 x10*3/uL; Atypical Lymphs Percent Manual 10 % (0-6); Band Neutrophils Percent 0 % (3-5); Basophils Abs Manual 0.1 X10*3/uL (0.0-0.2); Basophils Percent Manual 1 % (0-2); Eosinophils Absolute Manual 0.3 X10*3/uL (0.0-0.4); Eosinophils Percent Manual 2 % (0-4); Lymphocytes Absolute Manual 5.8 X10*3/uL (1.2-4.9); Lymphocytes Percent Manual 45 % (20-40); Monocytes Absolute Manual 0.4 X10*3/uL (0.1-1.2); Monocytes Percent Manual 3 % (2-11); Neutrophils Percent Manual 39 % (45-73)
[2021-07-20 21:37] LABS: Acanthocytes 1+ (0-2) /OIF; Microcytosis 1+ (5-14) /OIF; Platelet Estimate NORMAL (NORMAL); Platelet Morphology Comment NORMAL; RBC Morphology NOTED; Tear Drop Cells 1+ (0-2) /OIF
[2021-07-20 21:38] LABS: Polychromasia 1+ (0-2) /OIF; Smudge Cells PRESENT
[2021-07-20 23:51] LABS: Alanine Aminotransferase 50 U/L (0-31); Albumin Level 3.9 g/dL (3.5-5.0); Alkaline Phosphatase 73 U/L (39-117); Aspartate Amino Transferase 31 U/L (5-31); Bilirubin Direct < 0.2 mg/dL (0.0-0.5); Bilirubin Total 0.3 mg/dL (0.0-1.0); Magnesium 1.8 mg/dL (1.6-2.6); Total Protein 6.8 g/dL (6.5-8.0)
[2021-07-21 00:15] LABS: Syphilis Screen Nonreactive (Nonreactive)
--- NOTE | 2021-07-21 00:17 | ED.WOUNDLAC ---
HPI - Wound/Laceration General Chief Complaint: Wound/Laceration Stated Complaint: hand infection Time Seen by Provider: 07/20/21 17:24 Source: patient History of Present Illness HPI narrative: 50-year-old female with a PMHx ACS, bipolar, depression, hyperlipidemia, seizures, asthma, diabetes, presenting to the ED complaining of rash to bilateral palms & soles, abdomen, and groin since in November. Admits saw PCP who recommended ED evaluation/ dermatology, however patient has not been able to be evaluated until now. Patient reports intermittent fevers, and previous improvement with topical OTC cortisone, however no longer working. Describes pain as burning and itching with slight drainage from left hand. Reports symptoms originally occurred when she was diagnosed with strep pharyngitis. Denies new exposures, recent travel, known tick/insert bites, no new medications, or mucus membrane involvement, SOB/CP Onset (ago): month(s) Related Data Home Medications Medication Instructions Recorded Confirmed aspirin 81 mg tablet,delayed 81 mg PO DAILY 04/06/20 05/04/21 release levetiracetam 500 mg tablet See Rx Instructions .ROUTE .COMPLEX 07/23/20 05/04/21 (Keppra) linaclotide 72 mcg capsule 72 mcg PO .Q3days cap 10/12/20 05/04/21 Previous Rx's Medication Instructions Recorded fluticasone propionate 110 2 puff INHALATION BID 30 Days #1 ea 04/20/20 mcg/actuation HFA aerosol inhaler (Flovent HFA) ipratropium 0.5 mg-albuterol 3 mg 3 ml INHALATION QID PRN 30 Days 04/20/20 (2.5 mg base)/3 mL nebulization #180 ml soln carvedilol 3.125 mg tablet 3.125 mg PO BID 90 Days #180 tab 08/30/20 nitroglycerin 0.4 mg sublingual 0.4 mg SUBLINGUAL Q5M PRN #30 tab 10/12/20 tablet topiramate 200 mg tablet 500 mg PO DAILY #30 tab 11/10/20 pantoprazole 40 mg tablet,delayed 40 mg PO DAILY #30 tab 11/12/20 release blood sugar diagnostic (FreeStyle #50 ea 02/08/21 Lite Strips) blood-glucose meter (FreeStyle #1 ea 02/08/21 Lite Meter) lancets 28 gauge (FreeStyle #100 ea 02/08/21 Lancets) pravastatin 80 mg tablet 80 mg PO DAILY 90 Days #90 tab 02/10/21 metformin 850 mg tablet 850 mg PO BID 90 Days #180 tab 02/28/21 carisoprodol 350 mg tablet (Soma) 350 mg PO QID PRN #30 tab 03/20/21 mirtazapine 30 mg tablet 30 mg PO BEDTIME 90 Days #90 tab 03/24/21 lisinopril 2.5 mg tablet 2.5 mg PO DAILY 90 Days #90 tab 04/13/21 amlodipine 2.5 mg tablet 2.5 mg PO DAILY #90 tab 06/17/21 diazepam 2 mg tablet 2 mg PO DAILY PRN 30 Days #30 tab 07/19/21 clindamycin HCl 300 mg capsule 300 mg PO Q6H 7 Days #28 cap 07/21/21 prednisone 10 mg tablet 10 mg PO DAILY #20 tab 07/21/21 Allergies Allergy/AdvReac Type Severity Reaction Status Date / Time citalopram [From Celexa] Allergy Severe ANAPHYLAXIS Verified 05/04/21 16:18 Iodinated Contrast Media Allergy Severe ANAPHYLAXIS Verified 05/04/21 16:18 [IV Dye, Iodine Containing] morphine [Morphine] Allergy Severe THROAT Verified 05/04/21 16:18 CLOSED, anaphylaxis, anaphylaxis salmeterol Allergy Severe DIFFICULTY Verified 05/04/21 16:18 [From Serevent Diskus] BREATHING, shortness of breath, shortness of breath adhesive tape [Adhesive Tape] Allergy Intermediate RASH, Verified 05/04/21 16:18 PAPER TAPE IS OKAY TO USE azithromycin [From ZITHROMAX] Allergy Intermediate throat Verified 05/04/21 16:18 swelling doxycycline Allergy Intermediate Rash Verified 05/04/21 16:32 ezetimibe [From ZETIA] Allergy Intermediate muscle Verified 05/04/21 16:18 cramps propofol Allergy Intermediate seizure Verified 05/04/21 16:18 sitagliptin [From JANUVIA] Allergy Intermediate swollen Verified 05/04/21 16:18 trimethoprim [From BACTRIM] Allergy Intermediate sob Verified 05/04/21 16:18 codeine [Codeine] Allergy Mild ASTHMA, Verified 05/04/21 16:18 anaphylaxis hydrocortisone Allergy Mild RASH Verified 05/04/21 16:18 [Hydrocortisone] latex [Latex] Allergy Mild ITCHING Verified 05/04/21 16:18 Penicillins Allergy Mild HIVES Verified 05/04/21 16:18 trazodone [Trazodone] Allergy Mild HIVES Verified 05/04/21 16:18 adhesive bangade Allergy Unknown Unknown Verified 05/04/21 16:13 alirocumab [Praluent Pen] Allergy Unknown Severe Verified 05/04/21 16:18 muscle pain, cramping Cefuroxime Axetil Allergy Unknown shortness Verified 05/04/21 16:18 of breath Clindamycin HCl Allergy Unknown vomiting Verified 05/04/21 16:18 contrast dye Allergy Unknown anaphylaxis Verified 05/04/21 16:18 escitalopram [Lexapro] Allergy Unknown Unknown Verified 05/04/21 16:18 Hydrocortisone Allergy Unknown shortness Verified 05/04/21 16:18 of breath prednisone Allergy Unknown sob Verified 05/04/21 16:18 Sulfa (Sulfonamide Allergy Unknown sob Verified 05/04/21 16:18 Antibiotics) Toradol Allergy Unknown anaphylaxis Verified 05/04/21 16:18 tramadol [TRAMADOL] Allergy Unknown REACTION Verified 05/04/21 16:18 UNKNOWN, anaphylaxis, anaphylaxis naproxen AdvReac Severe gerd Verified 05/04/21 16:18 evolocumab AdvReac Intermediate hyperglycemia, Verified 05/04/21 16:18 [From Repatha SureClick] uncontrolled hypertension quetiapine [From Seroquel] AdvReac Mild SEIZURE Verified 05/04/21 16:18 Review of Systems Review of Systems: Constitutional: +intermittent Fever, No Chills, No Fatigue, No Malaise ENT/Mouth: No Ear Pain, No Hoarseness, No sore throat, No Rhinorrhea, No Swallowing Difficulty Eyes: No Eye Pain, No Swelling, No Redness Cardiovascular: No Chest Pain, No SOB, No Palpitation Respiratory: No Cough, No Dyspnea Gastrointestinal: No Nausea, No Vomiting, No Diarrhea, No Constipation, No Abdominal pain Genitourinary: No Dysuria, No Flank Pain, N No Hesitancy Musculoskeletal: No joint pain, No Myalgias, No Joint Swelling Skin: No Skin Lesions, + rash Neuro: No Weakness, No Dizziness, No Headache Yes all other systems are reviewed and are negative PMFSH Past Medical History Attestation statement: The following information was validated with the patient. Medical History Arteriosclerotic cardiovascular disease Bipolar 1 disorder Cervical radiculopathy Depression Dyspnea on exertion Essential (primary) hypertension Lumbar degenerative disc disease Mixed hyperlipidemia Moderate persistent asthma Neck pain NSTEMI (non-ST elevated myocardial infarction) Seizures Sinusitis Skin lesions Statin intolerance Thyroid nodule Type 2 diabetes mellitus with unspecified complications Surgical History H/O Spinal surgery H/O: hysterectomy History of appendectomy History of cardiac cath History of colonoscopy Hx of carpal tunnel repair Hx of endoscopy Hx of toe surgery Previous section Stented coronary artery Family History Family History Father Cancer of kidney Lung cancer Mother No problems noted. Social History Social History Household Members: Children Housing: Apartment Alcohol intake: never Patient Tobacco Use Status: Current everyday Tobacco user Tobacco use type: Cigarette Cigarette Packs Per Day: 0.5 e-Cigarette/Vaping Use: Never Used Second Hand Smoke Exposure: Yes Substance Use Type: Marijuana Advance Directives: No service: No Current occupational status: disabled Physical Exam Vital Signs: Vital Signs: Last Vital Signs Temp 98.5 F 07/21/21 00:41 Pulse 67 07/21/21 00:41 Resp 16 07/21/21 00:41 BP 107/68 07/21/21 00:41 Pulse Ox 98 07/21/21 00:41 BMI result Body Mass Index 22.6 Const: General: cooperative, healthy appearing and no acute distress Orientation/consciousness: patient oriented x3 Limitations: no limitations HENMT: Other: no mucous membrane involvement Head: Yes normal to inspection Ears: hearing grossly normal bilaterally General nose exam: Normal external nose present Face and sinus: Yes normal facial exam Mouth: no drooling Throat: Yes uvula midline, No abnormal tonsil and No peritonsillar mass Eyes: General: appearance normal, both eyes and all related structures EOM: EOMs intact bilaterally Neck: Neck: Yes normal visual inspection Resp: Effort & Inspection: normal respiratory effort, no respiratory distress and no stridor Auscultation: clear to auscultation bilaterally Cardio: Rate: regular rate Heart sounds: S1 normal heart sound present and S2 normal heart sound present GI: Inspection: Yes normal to inspection Palpation (GI): Soft to palpation, nontender and no guarding Skin: Other: please refer to images above. Left hand with noted pustules/ scaling and overlying erythema. Tender to palpation. Right hand with small papules/ pustules. No cellulitis. no sloughing Bilateral feet with nonblanching purpura. Small erythema/fungal infection under pannus & to suprapubic region Wounds: no wounds Neuro: General: patient oriented x3 Gait exam (Neuro): Normal gait present Extrem: General: Yes normal to inspection Course Course Course Narrative: -0120-- chronic leukocytosis of 12.9. ALT elevated, lactic acid negative labs otherwise unremarkable >> results discussed with patient. Plan to DC home with clindamycin and prednisone as are not true allergies. Discussed worrisome signs and symptoms and strict return precautions, patient feels safe for discharge home to follow-up with Dermatology MDM - Wound/Laceration MDM Narrative Medical decision making narrative: 50-year-old female with a PMHx ACS, bipolar, depression, hyperlipidemia, seizures, asthma, diabetes, presenting to the ED complaining of rash to bilateral palms & soles, abdomen, and groin since in November. On exam vital signs stable, NAD/nontoxic, afebrile. Please refer to images above. Concern for pustular psoriasis vs syphilis vs palmoplantar pustulosis vs pyoderma gangrenosum vs ?post strep rash although lower concern due to duration of time Case discussed with Dr. Ezekiel hansen concern for severe sepsis Plan: Labs, lactic/ blood cultures, wound culture, p.o. antibiotics for suspected superimposed staph infection, systemic steroids Medical Records Attestation: I reviewed the patient's medical records. Lab Data Attestation: I reviewed the patient's lab results. Result diagrams: 07/20/21 20:59 07/20/21 20:59 Labs: Lab Results 07/20/21 07/20/21 07/20/21 Range/Units 20:59 20:59 20:59 WBC 12.9 H (4.8-10.8) X10*3/uL RBC 4.95 (4.20-5.50) X10*6/uL Hgb 14.9 (12.0-16.0) g/dl Hct 43.7 (37.0-47.0) % MCV 88.3 (80.0-98.0) fL MCH 30.1 (27.0-33.0) pg MCHC 34.1 (31.0-35.0) g/dl RDW 13.3 (11.0-16.0) % Plt Count 390 (160-400) X10*3/uL MPV 8.9 L (9.4-12.3) fL Immature Gran % (Auto) Cancelled Neut % (Auto) Cancelled Lymph % (Auto) Cancelled [place] % (Auto) Cancelled Eos % (Auto) Cancelled Baso % (Auto) Cancelled Lymph # (Auto) Cancelled [place] # (Auto) Cancelled Eos # (Auto) Cancelled Baso # (Auto) Cancelled Abs Immat Gran (auto) Cancelled Absolute Neuts (auto) Cancelled Absolute Nucleated RBC 0.000 (0.0-0.012) X10*3/uL Nucleated RBC % (auto) 0.0 (0.0-0.2) /100WBC Neutrophils % (Manual) 39 L (45-73) % Band Neutrophils % 0 L (3-5) % Lymphocytes % (Manual) 45 H (20-40) % Atypical Lymphs % (Man) 10 H (0-6) % Monocytes % (Manual) 3 (2-11) % Eosinophils % (Manual) 2 (0-4) % Basophils % (Manual) 1 (0-2) % Abs Neuts (Manual) 5.0 (2.0-8.3) X10*3/uL Lymphocytes # (Manual) 5.8 H (1.2-4.9) X10*3/uL Atyp Lymphs # (Manual) 1.3 x10*3/uL Monocytes # (Manual) 0.4 (0.1-1.2) X10*3/uL Eosinophils # (Manual) 0.3 (0.0-0.4) X10*3/uL Basophils # (Manual) 0.1 (0.0-0.2) X10*3/uL Smudge Cells PRESENT Platelet Estimate NORMAL (NORMAL) Plt Morphology Comment NORMAL RBC Morphology NOTED Polychromasia 1+ (0-2) /OIF Microcytosis 1+ (5-14) /OIF Tear Drop Cells 1+ (0-2) /OIF Acanthocytes (Spur) 1+ (0-2) /OIF PT (9.9-13.0) SEC INR (0.9-1.1) APTT (24.1-38.0) SEC Sodium 140 (135-145) mmol/L Potassium 3.9 (3.3-5.1) mmol/L Chloride 110 H (96-108) mmol/L Carbon Dioxide 21 L (22-29) mmol/L Anion Gap 13 (12-20) BUN 11 (9-16) mg/dL Creatinine 0.56 (0.5-1.4) mg/dL Estim Creat Clear Calc 113.7 Estimated GFR > 60 Random Glucose 124 H (60-115) mg/dL Lactic Acid (0.5-2.0) mmol/L Calcium 9.8 (8.4-10.2) mg/dL Magnesium 1.8 (1.6-2.6) mg/dL Total Bilirubin 0.3 (0.0-1.0) mg/dL Direct Bilirubin < 0.2 (0.0-0.5) mg/dL AST 31 D (5-31) U/L ALT 50 H (0-31) U/L Alkaline Phosphatase 73 (39-117) U/L Total Protein 6.8 (6.5-8.0) g/dL Albumin 3.9 (3.5-5.0) g/dL T.pallidum Ab (EIA) Nonreactive (Nonreactive) 07/21/21 07/21/21 Range/Units 00:07 00:07 WBC (4.8-10.8) X10*3/uL RBC (4.20-5.50) X10*6/uL Hgb (12.0-16.0) g/dl Hct (37.0-47.0) % MCV (80.0-98.0) fL MCH (27.0-33.0) pg MCHC (31.0-35.0) g/dl RDW (11.0-16.0) % Plt Count (160-400) X10*3/uL MPV (9.4-12.3) fL Immature Gran % (Auto) Neut % (Auto) Lymph % (Auto) [place] % (Auto) Eos % (Auto) Baso % (Auto) Lymph # (Auto) [place] # (Auto) Eos # (Auto) Baso # (Auto) Abs Immat Gran (auto) Absolute Neuts (auto) Absolute Nucleated RBC (0.0-0.012) X10*3/uL Nucleated RBC % (auto) (0.0-0.2) /100WBC Neutrophils % (Manual) (45-73) % Band Neutrophils % (3-5) % Lymphocytes % (Manual) (20-40) % Atypical Lymphs % (Man) (0-6) % Monocytes % (Manual) (2-11) % Eosinophils % (Manual) (0-4) % Basophils % (Manual) (0-2) % Abs Neuts (Manual) (2.0-8.3) X10*3/uL Lymphocytes # (Manual) (1.2-4.9) X10*3/uL Atyp Lymphs # (Manual) x10*3/uL Monocytes # (Manual) (0.1-1.2) X10*3/uL Eosinophils # (Manual) (0.0-0.4) X10*3/uL Basophils # (Manual) (0.0-0.2) X10*3/uL Smudge Cells Platelet Estimate (NORMAL) Plt Morphology Comment RBC Morphology Polychromasia /OIF Microcytosis /OIF Tear Drop Cells /OIF Acanthocytes (Spur) /OIF PT 11.6 (9.9-13.0) SEC INR 1.0 (0.9-1.1) APTT 39.7 H (24.1-38.0) SEC Sodium (135-145) mmol/L Potassium (3.3-5.1) mmol/L Chloride (96-108) mmol/L Carbon Dioxide (22-29) mmol/L Anion Gap (12-20) BUN (9-16) mg/dL Creatinine (0.5-1.4) mg/dL Estim Creat Clear Calc Estimated GFR Random Glucose (60-115) mg/dL Lactic Acid 0.7 (0.5-2.0) mmol/L Calcium (8.4-10.2) mg/dL Magnesium (1.6-2.6) mg/dL Total Bilirubin (0.0-1.0) mg/dL Direct Bilirubin (0.0-0.5) mg/dL AST (5-31) U/L ALT (0-31) U/L Alkaline Phosphatase (39-117) U/L Total Protein (6.5-8.0) g/dL Albumin (3.5-5.0) g/dL T.pallidum Ab (EIA) (Nonreactive) Discharge Plan Discharge Clinical Impression: Rash and nonspecific skin eruption Patient Disposition: Home, Self-Care Instructions: Acute Rash (ED) Additional Instructions: your blood work wasreassuring today in the emergency department you need to follow-up with Dermatology start taking clindamycin as prescribed, in addition prednisone is an oral steroid monitor your sugars closely as prednisone will make your glucose elevated if symptoms persist or worsen, you developed fever, area begins to look infected please return to the ED Prescriptions: New clindamycin HCl 300 mg capsule 300 mg PO Q6H 7 Days Qty: 28 RF: 0 prednisone 10 mg tablet 10 mg PO DAILY Qty: 20 RF: 0 No Action carvedilol 3.125 mg tablet 3.125 mg PO BID 90 Days Qty: 180 RF: 3 topiramate 200 mg tablet 500 mg PO DAILY Qty: 30 RF: 0 pantoprazole 40 mg tablet,delayed release (DR/EC) 40 mg PO DAILY Qty: 30 RF: 4 (DME) blood-glucose meter [FreeStyle Lite Meter] Kit See Rx Instructions .Route Qty: 1 RF: 0 (DME) FreeStyle Lite Strips Strip See Rx Instructions .Route Qty: 50 RF: 11 (DME) lancets [FreeStyle Lancets] 28 gauge misc See Rx Instructions .Route Qty: 100 RF: 11 pravastatin 80 mg tablet 80 mg PO DAILY 90 Days Qty: 90 RF: 3 metformin 850 mg tablet 850 mg PO BID 90 Days Qty: 180 RF: 2 mirtazapine 30 mg tablet 30 mg PO BEDTIME 90 Days Qty: 90 RF: 1 lisinopril 2.5 mg tablet 2.5 mg PO DAILY 90 Days Qty: 90 RF: 3 amlodipine 2.5 mg tablet 2.5 mg PO DAILY Qty: 90 RF: 1 diazepam 2 mg tablet 2 mg PO DAILY PRN (Reason: muscle spasm) 30 Days Qty: 30 RF: 0 carisoprodol [Soma] 350 mg tablet 350 mg PO QID PRN (Reason: muscle pain) Qty: 30 RF: 0 aspirin 81 mg tablet,delayed release (DR/EC) 81 mg PO DAILY RF: 0 levetiracetam [Keppra] 500 mg tablet See Rx Instructions .ROUTE .COMPLEX RF: 0 Flovent HFA 110 mcg/actuation HFA aerosol inhaler 2 puff inhalation BID 30 Days Qty: 1 RF: 6 ipratropium-albuterol 0.5 mg-3 mg(2.5 mg base)/3 mL solution for nebulization 3 ml inhalation QID PRN (Reason: wheezing) 30 Days Qty: 180 RF: 6 linaclotide 72 mcg capsule 72 mcg PO .Q3days RF: 0 nitroglycerin 0.4 mg tablet, sublingual 0.4 mg sublingual Q5M PRN (Reason: chest pain) Qty: 30 RF: 5 Referrals: Lindsay Reyes PA [Physician [facility] [employer]] - 2 days Joe Harmon MD [Physician] - 2 days Sarah Cedeno PA-C [Physician [employer]] - 2 days Bonnie Armijo MD [Physician] - 2 days
[2021-07-21 00:23] LABS: Prothrombin Time 11.6 SEC (9.9-13.0)
[2021-07-21 00:24] LABS: Lactic Acid 0.7 mmol/L (0.5-2.0)
[2021-07-21 00:26] LABS: Partial Thromboplastin Time 39.7 SEC (24.1-38.0)
[2021-07-21 00:41] VITALS: BP 107/68; PULSE 67; RESP 16; TEMP 36.9; O2SAT 98
== END 2021-07-21 02:07 | disposition home or self-care (01) ==
PROVIDERS: Emergency Medicine Emergency Medical Services; Physician Assistant; Emergency Provider Internal Medicine; PCP Internal Medicine
DX: R21 Rash and other nonspecific skin eruption (principal); F17.210 Nicotine dependence, cigarettes, uncomplicated; Z71.6 Tobacco abuse counseling; Z79.899 Other long term (current) drug therapy; Z79.82 Long term (current) use of aspirin
CPT/HCPCS: 36415; 80048; 80076; 83605; 83735; 85007; 85027; 85610; 85730; 86780; 87040; 87071; 87205; 99283

== ENCOUNTER 2021-08-09 15:03 | Outpatient (REF) | payer OTHER, SELFPAY ==
--- NOTE | ~2021-08-09 | CT_ITS ---
EXAMINATION: CT CHEST, ABDOMEN AND PELVIS WITHOUT IV CONTRAST CLINICAL INFORMATION: Weight loss, early satiety and abdominal pain. COMPARISON: Previous chest x-rays most recent June [address] of the abdomen and pelvis August 2008 TECHNIQUE: Axial images through the chest, abdomen and pelvis without IV or oral contrast. Sagittal and coronal reconstructions on the technologist workstation were performed. Patient dose: 124 + 335 mGy/cm. FINDINGS: CHEST: The lungs are clear. No evidence of emphysema, bronchiectasis or interstitial lung disease is seen. No endobronchial or endotracheal lesion. There is coronary artery calcification. The mediastinum is otherwise normal. There is no pleural effusion or pleural thickening. No chest wall mass or enlarged axillary lymph nodes are seen. ABDOMEN AND PELVIS: The liver and gallbladder are normal. The spleen is normal. The pancreas is normal. The adrenal glands are normal. There is mild bilateral hydronephrosis. The ureters do not appear dilated. No stone is seen. The bladder is normal. The uterus appears to have been removed. No pelvic mass is seen. There is stool throughout the colon questionable for constipation. Small and large bowel is otherwise unremarkable. The appendix is not seen. There are no inflammatory changes seen in the right lower quadrant. The stomach is unremarkable. No hernia is seen. No ascites or adenopathy is seen. Vascular structures are unremarkable. Review at bone windows demonstrates degenerative changes of the spine. CT/CT abdomen pelvis wo con IMPRESSION: CHEST: Coronary artery calcification. ABDOMEN AND PELVIS: Mild bilateral hydronephrosis. No ureteral dilatation or stone seen. Stool throughout the colon questionable for constipation.
== END 2021-08-09 15:04 | disposition home or self-care (01) ==
LOC: HO.CT 15:03
PROVIDERS: PCP Internal Medicine; Visit Provider Internal Medicine
DX: R10.9 Unspecified abdominal pain (principal); D72.829 Elevated white blood cell count, unspecified; R63.4 Abnormal weight loss; R68.81 Early satiety
CPT/HCPCS: 71250; 74176

== ENCOUNTER 2021-08-16 14:57 | Outpatient (REF) | payer OTHER, SELFPAY | END 2021-08-16 14:58 | disposition home or self-care (01) | LOC: CF 14:57 | PROVIDERS: PCP Internal Medicine; Referring Provider Internal Medicine; Visit Provider Surgery | DX: L98.9 Disorder of the skin and subcutaneous tissue, unspecified (principal); Z79.899 Other long term (current) drug therapy; Z79.82 Long term (current) use of aspirin; F17.210 Nicotine dependence, cigarettes, uncomplicated | CPT/HCPCS: 11104; 11105; 88305; 88312; 99202 ==

== ENCOUNTER → 2021-10-12 14:04 | Outpatient (BNVA) | payer OTHER, SELFPAY | PROVIDERS: PCP Internal Medicine; Referring Provider Internal Medicine; Visit Provider Internal Medicine | DX: I25.10 Atherosclerotic heart disease of native coronary artery without angina pectoris (principal); I10 Essential (primary) hypertension; E11.8 Type 2 diabetes mellitus with unspecified complications; E78.2 Mixed hyperlipidemia; Z78.9 Other specified health status | CPT/HCPCS: 93005; 99212 ==

== ENCOUNTER → 2021-12-06 14:51 | Outpatient (BNVA) | payer OTHER, SELFPAY | PROVIDERS: PCP Internal Medicine; Visit Provider Nurse Practitioner Family | DX: M54.12 Radiculopathy, cervical region (principal); M79.18 Myalgia, other site; M43.02 Spondylolysis, cervical region | CPT/HCPCS: 99202 ==

== ENCOUNTER 2021-12-28 13:56 | Outpatient (REF) | payer OTHER, SELFPAY ==
--- NOTE | ~2021-12-28 | US_ITS ---
EXAMINATION: US SOFT TISSUE OF THE NECK CLINICAL INFORMATION: Generalized enlarged lymph nodes. COMPARISON: US thyroid 06/16/2019. TECHNIQUE: Linear transducer grayscale and color Doppler examination of the bilateral neck. FINDINGS: There are normal-appearing lymph nodes about the neck without evidence of cortical thickening or lobulation. In right level 2 there is a 1.3 x 0.4 x 0.1 cm lymph node. In the left neck (level 2) there is a 1.2 x 0.4 x 0.4 cm lymph node. Within the left mid lateral neck (level 5B) there is a 2 x 9 x 3 mm lymph node. US/US soft tiss head and/or neck IMPRESSION: No lymphadenopathy appreciated.
== END 2021-12-28 13:57 | disposition home or self-care (01) ==
LOC: HO.US 13:56
PROVIDERS: Visit Provider Internal Medicine
DX: R59.1 Generalized enlarged lymph nodes (principal)
CPT/HCPCS: 76536

== ENCOUNTER 2022-03-01 14:35 | Outpatient (REF) | payer OTHER, SELFPAY ==
[2022-03-01 15:34] LABS: Basophils Absolute Auto 0.1 X10*3/uL (0.0-0.2); Basophils Percent Auto 0.7 % (0-2); Eosinophils Absolute Auto 0.8 X10*3/uL (0.0-0.4); Eosinophils Percent Auto 5.2 % (0-4); Hemoglobin 15.9 g/dl (12.0-16.0); Imm Gran Pct Auto 0.6 % (0.0-0.4); Lymphocytes Percent Auto 50.2 % (20-40); MANUAL DIFF FLAG SCAN; Mean Corpuscular HGB Conc 34.6 g/dl (31.0-35.0); Mean Corpuscular Hemoglobin 30.4 pg (27.0-33.0); Mean Platelet Volume 10.5 fL (9.4-12.3); Monocytes Absolute Auto 0.8 X10*3/uL (0.1-1.2); Neutrophils Absolute Auto 6.2 x10*3/uL (2.0-8.3); Neutrophils Percent Auto 38.3 % (45-73); Platelet Count 365 X10*3/uL (160-400); Red Blood Count 5.23 X10*6/uL (4.20-5.50); Red Cell Distribution Width 12.7 % (11.0-16.0); SCAN SMEAR FLAG 1; White Blood Count 16.3 X10*3/uL (4.8-10.8)
[2022-03-01 15:35] LABS: Lymphocytes Absolute Auto 8.2 X10*3/uL (1.2-4.9)
[2022-03-01 15:57] LABS: Alanine Aminotransferase 20 U/L (0-31); Albumin Level 4.1 g/dL (3.5-5.0); Alkaline Phosphatase 61 U/L (39-117); Anion Gap 16 (12-20); Aspartate Amino Transferase 15 U/L (5-31); Bilirubin Total 0.2 mg/dL (0.0-1.0); Blood Urea Nitrogen 11 mg/dL (9-16); Carbon Dioxide 23 mmol/L (22-29); Chloride 106 mmol/L (96-108); Cholesterol 276 mg/dL; Estimated Glomerular Filt Rate > 60; Glucose Fasting 105 mg/dL (60-99); HDL Cholesterol 44 mg/dL; LDL Cholesterol Calculated 178 mg/dl; Potassium 4.3 mmol/L (3.3-5.1); Sodium 141 mmol/L (135-145); Total Protein 7.1 g/dL (6.5-8.0); Triglycerides 272 mg/dL
[2022-03-01 15:58] LABS: SLIDE REVIEW VERIFIED
[2022-03-01 16:46] LABS: Creatinine Urine 36.95 mg/dL; Microalbumin Urine < 5.0 mg/L
[2022-03-05 15:26] LABS: Vitamin D 25-OH, D2 8 ng/mL; Vitamin D 25-OH, D3 30 ng/mL; Vitamin D 25-OH, Total 38 ng/mL (30-100)
== END 2022-03-01 14:36 | disposition home or self-care (01) ==
LOC: HO.LAB 14:35
PROVIDERS: PCP Internal Medicine; Visit Provider Internal Medicine
DX: E11.9 Type 2 diabetes mellitus without complications (principal); E78.5 Hyperlipidemia, unspecified; M51.36 Other intervertebral disc degeneration, lumbar region; L98.9 Disorder of the skin and subcutaneous tissue, unspecified; D64.9 Anemia, unspecified; E55.9 Vitamin D deficiency, unspecified
CPT/HCPCS: 36415; 80053; 80061; 82043; 82306; 85025